=== PATIENT | female | born 2000 | race Caucasian/White ===

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

== ENCOUNTER 2020-08-23 18:09 | Emergency (ER) | payer SELFPAY ==
[2020-08-23 20:00] LABS: HEMOGLOBIN 11.5 gm/dl (12.3-15.3); RED BLOOD COUNT 4.79 M/UL (4.00-5.10); WHITE BLOOD COUNT 12.4 K/UL (4.5-11.0)
[2020-08-23 20:21] LABS: BUN/CREATININE RATIO 17 (0-10)
== END 2020-08-23 21:00 | disposition home or self-care (01) ==
LOC: ER1 18:09
PROVIDERS: Physician Assistant Medical
DX: N92.0 Excessive and frequent menstruation with regular cycle (principal); R10.30 Lower abdominal pain, unspecified; F17.210 Nicotine dependence, cigarettes, uncomplicated
CPT/HCPCS: 80053; 81001; 84703; 85025; 85610; 99284

== ENCOUNTER 2022-01-30 10:02 | Emergency (ER) | payer OTHER ==
[2022-01-30 11:59] LABS: HEMOGLOBIN 14.5 gm/dl (12.3-15.3); WHITE BLOOD COUNT 16.4 K/UL (4.5-11.0)
[2022-01-30 12:49] LABS: BUN/CREATININE RATIO 18 (0-10)
[2022-01-30] MEDS ORDERED: ZANAFLEX4 MG PO (14:19)
== END 2022-01-30 14:32 | disposition home or self-care (01) ==
LOC: ER1 10:02
PROVIDERS: Physician Assistant
DX: M51.15 Intervertebral disc disorders with radiculopathy, thoracolumbar region (principal); G89.29 Other chronic pain; F17.210 Nicotine dependence, cigarettes, uncomplicated; Z20.822 Contact with and (suspected) exposure to COVID-19
CPT/HCPCS: 0240U; 71045; 72128; 72131; 80053; 82550; 82553; 83605; 84484; 84703; 85025; 93005; 96374; 99284; J1885